=== PATIENT | female | born 1975 | race Caucasian/White ===

== ENCOUNTER 2019-01-05 08:36 | Inpatient (IN) | payer BC ==
[2018-12-29 16:51] VITALS: BMI 41.5
[~2019-01-05 08:36] MED LIST: HYDROmorphone HCL CARPU-JECT 1 MG/1 ML DISP.SYRIN IVPUSH PRN; LACTATED RINGERS SOLUTION 1,000 ML IV SCH; ONDANSETRON 4 MG/2 ML VIAL IVPUSH PRN
[2019-01-05] MEDS ORDERED: BUPIVACAINE HCL/PF 0.5% (5 MG/ML) 30 ML VIAL IJ ONE (08:43)
[2019-01-05] MEDS ORDERED: DEXAMETHASONE SOD PHOSPHATE/PF 10 MG/ML SDV ONE (08:43)
[2019-01-05] MEDS ORDERED: MIDAZOLAM HCL 2 MG/2 ML SINGLE DOSE VIAL ONE (08:43)
[2019-01-05] MEDS ORDERED: PROPOFOL 20 ML ONE ×2 (09:26)
[2019-01-05] MEDS ORDERED: ROCURONIUM BROMIDE 50 MG/5 ML SYRINGE ONE (09:27)
[2019-01-05] MEDS ORDERED: SUCCINYLCHOLINE CHLORIDE 200 MG/10 ML SYRINGE ONE ×2 (09:27→11:08)
[2019-01-05] MEDS ORDERED: ceFAZolin SODIUM 1 GM VIAL ONE (09:27)
[2019-01-05] MEDS ORDERED: ONDANSETRON 4 MG/2 ML VIAL ONE ×2 (09:29→10:57)
[2019-01-05] MEDS ORDERED: DEXAMETHASONE SOD PHOSPHATE 4 MG/1 ML VIAL ONE (09:29)
[2019-01-05] MEDS ORDERED: fentaNYL CITRATE 250 MCG/5 ML VIAL ONE (09:52)
[2019-01-05] MEDS ORDERED: ACETAMINOPHEN INJECTION 100 ML IVPB ONE (10:01)
[2019-01-05] MEDS ORDERED: FAMOTIDINE 20 MG/50 ML IVPB 20 MG/50 ML MG IVPB ONE (10:19)
[2019-01-05] MEDS ORDERED: KETOROLAC TROMETHAMINE 30 MG/1 ML VIAL ONE ×2 (10:47)
[2019-01-05] MEDS ORDERED: EPHEDRINE SULFATE/0.9% NACL/PF 50 MG/10 ML SYRINGE NR ONE (10:49)
[2019-01-05] MEDS ORDERED: NEOSTIGMINE METHYLSULFATE 0.5 MG/ML - 10 ML MDV ONE (10:57)
[2019-01-05] MEDS ORDERED: GLYCOPYRROLATE 0.2 MG/1 ML VIAL ONE ×2 (10:58→10:59)
[2019-01-05] MEDS ORDERED: SEVOFLURANE 250 ML BTL ONE (11:37)
[2019-01-05] MEDS ORDERED: DESFLURANE GAS 240 ML BOTTLE IH ONE (11:37)
[2019-01-05] MEDS ORDERED: HYDROmorphone HCL CARPU-JECT 1 MG/1 ML DISP.SYRIN IM PRN (11:53)
[2019-01-05] MEDS ORDERED: ONDANSETRON 4 MG/2 ML VIAL IVPUSH PRN (11:53)
[2019-01-05] MEDS ORDERED: SODIUM CHLORIDE 1,000 ML IV SCH (12:00)
[2019-01-05] MEDS ORDERED: FLUTICASONE/SALMETEROL 100 MCG/50 MCG DISKUS IH PRN (12:01)
--- NOTE | 2019-01-05 12:08 | OP ---
Operative Note - Note: Operative Date: 01/05/19 Pre-Operative Diagnosis: Morbid Obesity. Hypertension. GE Reflux Disease. Asthma Operation: Laparoscopic Vertical Sleeve Gastrectomy. Wedge Biopsy of left lobe of liver. Repair of Hiatal Hernia. Diagnostic Laparoscopy Findings: Greater curve sleeve gastrectomy performed with #[address] Wedge biopsy performed on left lobe of liver Medium-sized hiatal hernia repaired with figure-of-8 suture anteriorelly with bougie in place Post-Operative Diagnosis: Other (Hepatomegaly; Hiatal Hernia) Surgeon: Bang August Gas Utility Worker: Luis Enrique Nieves Anesthesia: General Specimens Removed: Wedge biopsy of left lobe of liver Operative Report Dictated: Yes
[2019-01-05 12:21] LABS: MEAN CELL VOLUME 85.7 fl (80-96)
[2019-01-05 12:27] LABS: HEMATOCRIT 36.2 % (32.4-45.2); HEMOGLOBIN 12.2 GM/dl (10.7-15.3); MCH 28.9 pg (25.7-33.7); MCHC 33.8 g/dl (32.0-36.0); MEAN PLT VOLUME 8.9 fl (7.5-11.1); PLATELET COUNT 304 K/MM3 (134-434); RBC 4.22 M/mm3 (3.60-5.2); WHITE BLOOD COUNT 12.5 K/mm3 (4.0-10.8)
[2019-01-05 12:46] LABS: ALBUMIN 3.3 g/dl (3.4-5.0); BILIRUBIN,TOTAL 0.4 mg/dl (0.2-1); CALCIUM 8.5 mg/dl (8.5-10); CREATININE 0.8 mg/dl (0.55-1.3); POTASSIUM 3.5 mmol/L (3.5-5.1); TOT PROT 6.7 g/dl (6.4-8.2)
[2019-01-05] MEDS ORDERED: POTASSIUM CHLORIDE TABS 20 MEQ TABLET.ER (FP) PO ONE (16:21)
[2019-01-05] MEDS: METOCLOPRAMIDE HCL INJECTION 10 MG/2 ML VIAL IVPUSH SCH ×2 (17:27→23:24)
[2019-01-05] MEDS ORDERED: POTASSIUM CHLORIDE TABS 10 MEQ TABLET.ER (FP) PO ONE (17:30)
[2019-01-05] MEDS: FAMOTIDINE 20 MG/50 ML IVPB 20 MG/50 ML MG IVPB SCH (21:31)
--- NOTE | 2019-01-05 22:35 | OP ---
DATE OF OPERATION: 01/05/2019 PREOPERATIVE DIAGNOSES: 1. Morbid obesity. 2. Hypertension. 3. Asthma. 4. Gastroesophageal reflux disease. POSTOPERATIVE DIAGNOSES: 1. Morbid obesity. 2. Hypertension. 3. Asthma. 4. Gastroesophageal reflux disease. 5. Hepatomegaly. 6. Hiatal hernia. PROCEDURE PERFORMED: 1. Laparoscopic vertical sleeve gastrectomy. 2. Wedge biopsy of the left lobe of the liver. 3. Repair of hiatal hernia. 4. Diagnostic laparoscopy. OPERATING SURGEON: Bang August MD FURNACE REPAIRER HELPER: Luis Enrique Nieves MD ANESTHESIA: General. EXPECTED BLOOD LOSS: 30 mL. OPERATIVE PROCEDURE: The patient was brought into the operating room, placed on the OR table in supine position. All precautions were taken initially including padding for the back and the feet, and Venodyne boots were placed on both lower extremities. At that point, the abdomen was prepped and draped in the usual manner. A Veress needle was placed in the left upper quadrant, and a pneumoperitoneum was established. A number 5 bladeless trocar was placed under direct vision into the left upper quadrant, and the abdomen was entered. Once upon placing the laparoscopic camera, a number 15 bladeless trocar was placed in the midline in a supraumbilical position, followed by a number 5 bladeless trocar in the right upper quadrant and number 5 bladeless trocar below the left costal margin. A Christie liver retractor was placed in the epigastrium to retract the left lobe of liver. The patient was then placed in a 20-degree reverse Trendelenburg position by Anesthesia. Immediately upon placing the patient in that position, there was noted to be a [id number] size, anterior hiatal hernia. The hiatal hernia had both the left and right crural muscles identified easily. The Endostitch was taken and a [id number] was placed through the right and left crura twice and then it was tied. Once it was tied, it was tied so that the hernia was repaired, but it was not too tight so it would not cause postop dysphagia. At that point, the pylorus was noted on the distal stomach, and 6 cm were measured from that area. Here, the stomach was grabbed by the operating surgeon and lifted toward the anterior abdominal wall as the pharmacy sales assistant surgeon retracted the gastrocolic ligament inferiorly. The LigaSure device was used to dissect the gastrocolic ligament off the greater curve of stomach. This continued in a superior and vertical direction, eventually dissecting the short gastric vessels off the stomach wall until the final short gastric vessel or the proximal first short gastric vessel between the superior pole of spleen and proximal fundus was divided. At this juncture, Anesthesia advanced a number 36 bougie along the lesser curve of the stomach. With the bougie held along the lesser curve, a series of victorino was performed with the first 2 being black load victorino 6 cm in length along the bougie. This was followed by a series of purple load victorino also 6 cm in length along the bougie until the final staple was fired in the left upper quadrant, and the greater curve was now completely detached from the lesser curve. It should be noted that prior to firing these victorino, both the anterior and posterior johnson were checked that they were equal, and in the area of the esophagogastric junction, approximately 1 to 1.5 cm of serosa remained on the anterior and posterior surfaces. At this juncture, saline was placed around the staple line, and Anesthesia inserted air into the bougie which distended to 35 mmHg. No signs of leaks were noted, and air was noted all the way down to the atrium, showing no signs of obstruction. At this juncture, the stomach was decompressed, and the bougie was removed by Anesthesia. Attention was now directed to the enlarged left lobe of the liver. It was decided that a wedge biopsy would be performed on the anterior edge of the left lobe of the liver. The LigaSure device was now used to take a triangular-shaped wedge off the inferior portion of the left lobe of the liver. This was then sent off the field as a specimen to pathology. There was only very minor oozing from the parenchyma, which was easily controlled with the LigaSure device. At this point, the resected greater curve was removed from the number 15 trocar site and sent off the field as specimen to pathology. The number 15 trocar site was then closed with Endoclose device to prevent internal hernia and to prevent bleeding. Under direct vision, all trocars were removed, and pneumoperitoneum was released. All trocar sites received 0.25% Marcaine, were closed with 4-0 Biosyn in a subcuticular fashion. The number 15 trocar site in the midline was first closed with 3-0 Vicryl in the subcutaneous tissue, then followed by 4-0 Biosyn in a subcuticular fashion. Dressings were applied. The patient awoke from anesthesia and transferred out of the operating room to the recovery room in stable condition. Geovanni [id number]
[2019-01-05] MEDS: ENOXAPARIN NA (PORCINE) 40 MG/0.4 ML DISP.SYRIN SQ SCH (23:24)
[2019-01-06] MEDS: METOCLOPRAMIDE HCL INJECTION 10 MG/2 ML VIAL IVPUSH SCH ×2 (06:12→12:12)
--- NOTE | 2019-01-06 07:22 | CONSULT ---
Consult - History of Present Illness History of Present Illness: 43 y/o female with h/o htn s/p gastric sleeve. of states she feels better pt states she had chest discomfort when she was laying down last night felt better when she got up she has been walking around without chest pain - Past Medical History Cardio/Vascular: Yes: HTN ...LMP Comment: s/p hysterectomy Endocrine: No: Diabetes Mellitus - Alcohol/Substance Use Hx Alcohol Use: No - Smoking History Smoking history: Never smoked Have you smoked in the past 12 months: No Home Medications - Allergies Allergies/Adverse Reactions: Allergies Allergy/AdvReac Type Severity Reaction Status Date / Time No Known Allergies Allergy Verified 01/05/19 08:49 - Home Medications Home Medications: Ambulatory Orders Albuterol Sulfate [Proair Respiclick] 2 puff IH QID PRN 12/29/18 Fluticasone/Salmeterol [Advair Hfa 115-21 Mcg Inhaler] 2 inh PO BID PRN Losartan/Hydrochlorothiazide [Losartan-Hctz 100-25 mg Tab] 1 each PO DAILY 12/29 Omeprazole 40 mg PO DAILY 12/29/18 Propranolol HCl 20 mg PO DAILY 12/29/18 Oxycodone HCl/Acetaminophen [Percocet 5-325 mg Tablet] 1 tab PO Q6H PRN #20 tablet MDD 4 01/05/19 Review of Systems - Review of Systems Cardiovascular: reports: Chest Pain. denies: Palpitations, Shortness of Breath Respiratory: denies: SOB, SOB on Exertion Physical Exam Vital Signs: Vital Signs Temperature 98.6 F 01/06/19 06:04 Pulse Rate 62 01/06/19 06:04 Respiratory Rate 18 01/06/19 06:04 Blood Pressure 97/60 01/06/19 06:04 O2 Sat by Pulse Oximetry (%) 100 01/06/19 06:04 Cardiovascular: Yes: Regular Rate and Rhythm Respiratory: Yes: Regular, CTA Bilaterally Gastrointestinal: Yes: Normal Bowel Sounds, Soft Imaging - Results EKG: Image Reviewed (NSR) Problem List - Problems (1) Obesity Assessment/Plan: Operative Date: 01/05/19 Pre-Operative Diagnosis: Morbid Obesity. Hypertension. GE Reflux Disease. Asthma Operation: Laparoscopic Vertical Sleeve Gastrectomy. Wedge Biopsy of left lobe of liver. Repair of Hiatal Hernia. Diagnostic Laparoscopy Findings: Greater curve sleeve gastrectomy performed with #[address] Wedge biopsy performed on left lobe of liver Medium-sized hiatal hernia repaired with figure-of-8 suture anteriorelly with bougie in place Post-Operative Diagnosis: Other (Hepatomegaly; Hiatal Hernia) Surgeon: Bang August Cattle Dehorner: Luis Enrique Nieves Code(s): E66.9 - OBESITY, UNSPECIFIED (2) HTN (hypertension) Assessment/Plan: Orders 01/06/19 10:00 Losartan 50Mg/Hctz 12.5MG [Hyzaar -] 2 tab PO DAILY Vital Signs Period Temp Pulse Resp BP Sys/[place] Pulse Ox Last 24 Hr 97.8 F-98.7 F 51-65 16-19 97-144/5-79 96-100 monitor Code(s): I10 - ESSENTIAL (PRIMARY) HYPERTENSION (3) Chest pain Assessment/Plan: Atypical most likely muscular ekg nsr no acute changes ce monitor Code(s): R07.9 - CHEST PAIN, UNSPECIFIED
[2019-01-06 07:58] LABS: ALBUMIN 3.2 g/dl (3.4-5.0); BILIRUBIN,TOTAL 0.5 mg/dl (0.2-1); CALCIUM 8.6 mg/dl (8.5-10); CREATININE 0.7 mg/dl (0.55-1.3); POTASSIUM 3.4 mmol/L (3.5-5.1); TOT PROT 6.4 g/dl (6.4-8.2)
[2019-01-06 08:01] LABS: HEMATOCRIT 34.7 % (32.4-45.2); HEMOGLOBIN 11.8 GM/dl (10.7-15.3); MCH 29.1 pg (25.7-33.7); MCHC 34.1 g/dl (32.0-36.0); MEAN CELL VOLUME 85.3 fl (80-96); MEAN PLT VOLUME 9.7 fl (7.5-11.1); PLATELET COUNT 286 K/MM3 (134-434); RBC 4.06 M/mm3 (3.60-5.2); RDW 14.1 % (11.6-15.6); WHITE BLOOD COUNT 16.5 K/mm3 (4.0-10.8)
[2019-01-06] MEDS: ENOXAPARIN NA (PORCINE) 40 MG/0.4 ML DISP.SYRIN SQ SCH (09:46)
[2019-01-06] MEDS: FAMOTIDINE 20 MG/50 ML IVPB 20 MG/50 ML MG IVPB SCH (09:46)
[2019-01-06] MEDS ORDERED: LOSARTAN 50MG/HCTZ 12.5MG 1 TAB (FP) PO SCH (10:00)
[2019-01-06] MEDS ORDERED: ACETAMINOPHEN 325 MG TABLET (FP) PO PRN (13:46)
[2019-01-06] MEDS ORDERED: SODIUM CHLORIDE 1,000 ML IV SCH (14:00)
[2019-01-06] MEDS ORDERED: POTASSIUM CHLORIDE TABS 10 MEQ TABLET.ER (FP) PO ONE (14:00)
[2019-01-06 14:03] VITALS: BP 103/52; PULSE 80; TEMP 99
--- NOTE | 2019-01-06 14:15 | PN ---
Progress Note (short form) - Note Progress Note: pt ekg and ce negative due to pt low bp hold meds till seen by pmd within one week f/u cbc and bmp one week no objection to dc with above recommendations Problem List - Problems (1) Obesity Code(s): E66.9 - OBESITY, UNSPECIFIED (2) HTN (hypertension) Code(s): I10 - ESSENTIAL (PRIMARY) HYPERTENSION (3) Chest pain Code(s): R07.9 - CHEST PAIN, UNSPECIFIED
--- NOTE | 2019-01-06 14:35 | PN ---
Progress Note (short form) - Note Progress Note: POD#1 Afebrile; P-62-72 BP-103/57 Medical note appreciated Pt c/o slight epigastric pain last evening, probably related to upper sleeve near xiphoid No N/V No chest pain today Ambulating well C/O feeling chills, flushed this AM AC shut down , now better No fever noted P/E- Abd- all trocar sites clean, dry no hematoma noted Ext- no cord on palpation, no swelling UGI- no leak, no obstruction WBC-16.5 H/H-11.8/34.7 BUN/CR-12/0.7 P- D/C pt home All instructions given regarding PO, shower, etc F/U with PCP regarding BP meds F/U with Bariatric Surgery in 8 days
--- NOTE | 2019-01-06 14:48 | PN ---
Progress Note (short form) - Note Progress Note: 43F POD1 s/p laparoscopic sleeve gastrectomy under GA-ETT with bilateral rectus sheath blocks for post operative pain management. Pt states that pain is well controlled and denies any anesthetic complications. AVSS. Continue current regimen.
--- NOTE | 2019-01-06 15:44 | EKG ---
Test Reason : Blood Pressure : / mmHG Vent. Rate : 058 BPM Atrial Rate : 058 BPM P-R Int : 132 ms QRS Dur : 100 ms QT Int : 456 ms P-R-T Axes : 026 -14 005 degrees QTc Int : 447 ms SINUS BRADYCARDIA LOW VOLTAGE QRS BORDERLINE ECG NO PREVIOUS ECGS AVAILABLE Confirmed by MD YARIEL, ZA ([id number]) on 01/06/2019 3:44:39 PM Referred By: Bang August Confirmed By:ZA SALDIVAR MD
--- NOTE | 2019-01-07 16:59 | PATH ---
Surgical Pathology Report Patient Name: MARTIN NOGUERA Med. Rec. #: [id number] /Age/Gender: 1975 (Age: 43) / F Account: [id number] Location: [facility] Taken: 01/05/2019 Received: 01/05/2019 Reported: 01/07/2019 Physicians: Bang August M.D. Specimen(s) Received A: GREATER CURVATURE STOMACH B: LIVER BIOPSY Clinical History Morbid obesity Final Diagnosis A. GREATER CURVATURE STOMACH, LAPAROSCOPIC VERTICAL SLEEVE GASTRECTOMY: SEGMENT OF STOMACH SHOWING MILD CHRONIC GASTRITIS. IMMUNOSTAINING IS NEGATIVE FOR H. PYLORI ORGANISMS. B. LIVER, BIOPSY: LIVER TISSUE WITH STEATOSIS (50%), DIFFUSE. NO HISTOLOGIC EVIDENCE OF STEATOHEPATITIS. NO INCREASE IN FIBROSIS (TRICHROME STAIN) OR IRON (IRON STAIN) DEPOSITION. Comments Her Electronically Signed Arvin Rachel M.D. Gross Description A. Received in formalin, labeled "greater curvature stomach," is a 125 gram, 21.0 x 3.0 x 3.0 cm. portion of stomach with a stapled margin of resection. The serosa is crystal-kelsey with minimal attached fat. The mucosa is crystal-pink with normal folds. No mucosal masses are identified. Weeder Thinner sections are submitted in one cassette. B. Received in formalin labeled "liver biopsy," is a 2.2 x 0.7 x 0.5 cm crystal portion of soft tissue, consistent with a liver biopsy. The specimen is bisected and entirely submitted in one cassette. /01/06/2019 saudi01/06/2019
== END 2019-01-06 15:00 | disposition home or self-care (01) | DRG 621 ==
LOC: FM/S 08:36
PROVIDERS: ADMIT Surgery; ATTEND Surgery
PROC: 0FB24ZX Excision of Left Lobe Liver, Percutaneous Endoscopic Approach, Diagnostic (ICD-10-PCS; 2019-01-05)
PROC: 0BQT4ZZ Repair Diaphragm, Percutaneous Endoscopic Approach (ICD-10-PCS; 2019-01-05)
PROC: 0DJ04ZZ Inspection of Upper Intestinal Tract, Percutaneous Endoscopic Approach (ICD-10-PCS; 2019-01-05)
PROC: 0DB64Z3 Excision of Stomach, Percutaneous Endoscopic Approach, Vertical (ICD-10-PCS; principal; 2019-01-05 10:55)
DX: E66.01 Morbid (severe) obesity due to excess calories (principal); I10 Essential (primary) hypertension; K21.9 Gastro-esophageal reflux disease without esophagitis; J45.909 Unspecified asthma, uncomplicated; Z90.710 Acquired absence of both cervix and uterus; E11.9 Type 2 diabetes mellitus without complications; R16.0 Hepatomegaly, not elsewhere classified; R07.89 Other chest pain
CPT/HCPCS: 36415; 74241-TC-FY; 80053; 82550; 84484; 85027; 88305-TC; 88313-TC; 93005; 94760; J0131; J7030